=== PATIENT | male | born 1980 | race Caucasian/White ===

== ENCOUNTER 2021-08-16 12:19 | Emergency (ER) | payer OTHER ==
[~2021-08-16] VITALS: Ht 177.8 cm; Wt 82.0 kg
[2021-08-16] MEDS ORDERED: IBUPROFEN 400MG TABLET PO ONE (12:45)
[2021-08-16] MEDS ORDERED: ACETAMINOPHEN 325MG TABLET PO ONE (12:45)
[2021-08-16] MEDS ORDERED: LACTATED RINGERS 1,000 ML IV SCH (12:45)
[2021-08-16 12:52] LABS: BASOPHILS % 0.7 % (0.0-2.0); EOSINOPHILS % 5.2 % (0.0-5.0); HEMATOCRIT. 41.7 % (42.0-52.0); MEAN CORPUSCULAR HEMOGLOBIN 30.6 pg (28.0-32.0); MEAN CORPUSCULAR VOLUME 91.3 fL (80.0-94.0); MEAN PLATELET VOLUME 10.5 fl (7.4-10.4); MONOCYTES % 8.6 % (2.0-8.0); NEUTROPHILS % 58.5 % (40.0-76.0); PLATELET 212 x1000/uL (130-400); RED BLOOD CELL COUNT 4.57 mill/uL (4.7-6.1); RED CELL DISTRIBUTION WIDTH 12.8 % (11.6-14.6)
[2021-08-16 12:59] LABS: CHLORIDE 101 mEq/L (98-107)
[2021-08-16 17:02] VITALS: BP 107/71
== END 2021-08-16 17:09 | disposition home or self-care (01) ==
LOC: ER 12:19
DX: R07.89 Other chest pain (principal)
CPT/HCPCS: 36415; 71045; 80053; 82962; 83690; 83880; 84484; 85025; 96360; 99284; Z7610